=== PATIENT | female | born 1990 | race Caucasian/White ===

== ENCOUNTER 2023-03-27 08:17 | Outpatient (RCR) | payer OTHER, SELFPAY ==
[2023-03-26 13:14] LABS: HIV 1/2 Ab P24 Ag Result Negative (Negative)
[2023-03-27 11:25] LABS: Rapid Plasma Reagin Non-Reactive (NonReactive)
[2023-03-27] MEDS: RHO(D) IMMUNE GLOBULIN 300 MCG/2 ML SYRINGE IM (14:01)
== END 2023-03-27 08:30 | disposition home or self-care (01) ==
LOC: ANHLAB 08:17
PROVIDERS: Visit Provider Obstetrics & Gynecology
DX: Z11.4 Encounter for screening for human immunodeficiency virus [HIV] (principal); Z29.13 Encounter for prophylactic Rho(D) immune globulin; O36.0190 Maternal care for anti-D [Rh] antibodies, unspecified trimester, not applicable or unspecified; Z3A.00 Weeks of gestation of pregnancy not specified
CPT/HCPCS: 36415; 85461; 86592; 86703; 86850; 86900; 86901; 90384; 96372; G0432; J2790

== ENCOUNTER 2023-06-15 08:29 | Outpatient (RCR) | payer OTHER, SELFPAY ==
[2023-06-09 10:37] VITALS: BP 130/75; PULSE 62
--- NOTE | ~2023-06-15 | US_ITS ---
. EXAMINATION: US OB limited DATE: 06/15/2023 09:28 INDICATION: Postdates. TECHNIQUE: Real-time ultrasound of the pelvis was performed. COMPARISON: Ultrasound 06/09/2023 FINDINGS: There is a single fetus in vertex presentation. The placenta is anterior. heart rate is 140 be ats per minute (bpm). The amniotic fluid index is 10.0 cm, which is normal. IMPRESSION: 1. Single living fetus in vertex presentation. 2. Normal amniotic fluid index. Reviewed, dictated and finalized at location A.
--- NOTE | ~2023-06-15 | US_ITS ---
EXAMINATION: US OB limited DATE: 06/09/2023 10:23 INDICATION: Amniotic fluid index assessment, term TECHNIQUE: Real-time ultrasound of the pelvis was performed. The interpreting radiologist was not pre sent for the study. COMPARISON: None. FINDINGS: There is a single living fetus in vertex presentation. The placenta is anterior. card iac activity and movement are noted. heart rate is 139 beats per minute (bpm). The amniot ic fluid index is 11.5 cm which is normal (normal range: 7.1 cm to 21.4 cm). IMPRESSION: 1. Single living fetus in vertex presentation. 2. Normal amniotic fluid index. Reviewed, dictated and finalized at location L.
[2023-06-15 09:38] VITALS: BP 104/65; PULSE 62
== END 2023-07-13 12:40 | disposition home or self-care (01) ==
LOC: ANHOBOP 08:29
PROVIDERS: Visit Provider Obstetrics & Gynecology
DX: O48.0 Post-term pregnancy (principal); Z3A.40 40 weeks gestation of pregnancy
CPT/HCPCS: 59025; 76815

== ENCOUNTER 2023-06-17 05:05 | Inpatient (IN) | payer OTHER, SELFPAY ==
[2023-06-17] VITALS (94 sets, daily range): BP systolic 87–185; BP diastolic 48–169; PULSE 50–137; RESP 16–18; TEMP 36.5–37.3; O2SAT 81–100; BMI 31.3
--- NOTE | 2023-06-17 05:27 | LDADM ---
This patient, Suzie Llamas, was admitted to Labor/Delivery/Recovery 103 on 06/17/23 at 05:05. Plans for labor, pain management and were discussed with patient. Patient/family oriented to hospital policies and general routines including ID bracelet, bed and alarms, visiting hours, pain management, procedures, bathroom and other care routines, personal items, smoking policy, room service/diet and guest tray routines, infant security routines, and visiting hours. Patient/Family are encouraged to report perceived risks to care and to ask questions if they do not understand what they are told or what they should do. See OBIX for further documentation.
[2023-06-17 06:05] LABS: Basophils Absolute Auto 0.1 K/mm3 (0.0-0.1); Basophils Percent Auto 0.9 % (0.2-1.2); Eosinophils Absolute Auto 0.3 K/mm3 (0-0.3); Eosinophils Percent Auto 3.8 % (0-4.4); Hematocrit 40.2 % (37.0-47.0); Hemoglobin 13.5 g/dL (12.0-15.0); Immature Granulocyte Absolute 0.05 K/mm3 (0.00-0.031); Immature Granulocyte Percent A 0.6 % (0-0.5); Lymphocytes Absolute Auto 1.89 K/mm3 (0.9-3.2); Lymphocytes Percent Auto 21.2 % (18.3-44.2); Mean Corpuscular HGB Conc 33.6 g/dl (32-36); Mean Corpuscular Hemoglobin 30.7 pg (26-34); Mean Corpuscular Volume 91.4 fl (80-100); Monocytes Absolute Auto 0.7 K/mm3 (0.1-0.6); Monocytes Percent Auto 7.3 % (2.6-8.5); Neutrophils Absolute Auto 5.9 K/mm3 (1.3-6.7); Neutrophils Percent Auto 66.2 % (45.5-73.1); Platelet Count Result 165 k/mm3 (150-375); Red Cell Distribution Width 13.3 % (11.5-14.5); White Blood Count 8.9 K/mm3 (4.5-10.0)
[2023-06-17] MEDS: OXYTOCIN 30 UNITS/NS 500 ML 30 UNITS/500 ML BAG 6 UNITS IV CONT (06:56)
[2023-06-17] MEDS: LACTATED RINGERS 1,000 ML 125 ML IV CONT ×2 (06:56→11:31)
--- NOTE | 2023-06-17 11:46 | WPDANESEPPF ---
Anes - Initial Pre Proc Eval Date/Time: 06/17/23 11:46 Surgeon: Lokesh Felipe MD Pre Op Diagnosis: IOL Patient Data Age: 33 Gender: F Height: 1.68 m Weight: 88 kg Last Vital Signs Temp 36.6 C 06/17/23 08:27 Pulse 67 06/17/23 11:45 BP 115/66 06/17/23 11:45 Pulse Ox 100 06/17/23 11:43 O2 Del Method Room Air 06/17/23 05:25 Allergies Allergy/AdvReac Type Severity Reaction Status Date / Time No Known Allergies Allergy Verified 06/16/23 08:09 Home Medications Medication Instructions Recorded Confirmed Type Saccharomyces boulardii 250 mg 5,000 mmu cells PO DAILY 11/05/22 06/16/23 History capsule (Daily Probiotic (S. boulardii)) Seeking Health Essentials 1 tab-cap PO DAILY 11/05/22 06/16/23 History cholecalciferol (vitamin D3) 50 50 mcg PO DAILY 11/05/22 06/16/23 History mcg (2,000 unit) capsule choline 250 mg tablet 350 mg PO DAILY 11/05/22 06/16/23 History docosahexaenoic acid 200 mg 200 mg PO DAILY 11/05/22 06/16/23 History capsule ( DHA) ferrous gluconate 240 mg (27 mg 240 mg PO DAILY 11/05/22 06/16/23 History iron) tablet (Ferate) magnesium 200 mg tablet 150 mg PO DAILY 11/05/22 06/16/23 History Laboratory Tests 06/17/23 05:45 WBC 8.9 K/mm3 (4.5-10.0) RBC 4.40 M/mm3 (4.2-5.4) Hgb 13.5 g/dL (12.0-15.0) Hct 40.2 % (37.0-47.0) MCV 91.4 fl (80-100) MCH 30.7 pg (26-34) MCHC 33.6 g/dl (32-36) RDW 13.3 % (11.5-14.5) Plt Count 165 k/mm3 (150-375) MPV 11.0 H fl (7.4-10.4) Immature Gran % (Auto) 0.6 H % (0-0.5) Neut % (Auto) 66.2 % (45.5-73.1) Lymph % (Auto) 21.2 % (18.3-44.2) [place] % (Auto) 7.3 % (2.6-8.5) Eos % (Auto) 3.8 % (0-4.4) Baso % (Auto) 0.9 % (0.2-1.2) Lymph # (Auto) 1.89 K/mm3 (0.9-3.2) [place] # (Auto) 0.7 H K/mm3 (0.1-0.6) Eos # (Auto) 0.3 K/mm3 (0-0.3) Baso # (Auto) 0.1 K/mm3 (0.0-0.1) Abs Immat Gran (auto) 0.05 H K/mm3 (0.00-0.031) Absolute Neuts (auto) 5.9 K/mm3 (1.3-6.7) Absolute Nucleated RBC 0.0 K/mm3 (0.0-0.012) Nucleated RBC % 0.0 % (0.0-0.2) RPR Pending Blood Type O Negative Antibody Screen Positive Antibody Identification Inconclusive Antigen Identification Cancelled KAT, IgG Interpret Not Performed KAT, Poly Interpret Negative KAT, Complement Interp Not Performed Patient hx anesthesia problems: none Family hx anesthesia problems: none Results Review: All pre-operative results and documents have been reviewed as part of the pre-operative evaluation. [facility] Past Medical History Medical History No active medical problems Surgical History Surgical History S/P left knee surgery S/P plastic surgery lower body lift, breast lift, arm lift, thigh and back lift S/P right knee surgery Family History Family History Sibling Coarctation of aorta Social History Social History Smoking status: Never smoker Alcohol intake: never Substance use: never Substance use type: does not use Lack of Transportation: No Lack of Food: Never True Current Housing: I Have Housing Concerned About Future Housing: No Difficulty Paying Gas/Electric Bills: No Difficulty Paying for Meds: No Currently Unemployed: No Education: Bachelor's Degree Difficulty w/ Childcare or Family Care: No Living arrangements: with family Occupation/Education: occupation Gender identity (if verbalized by the patient): Female Sexual Orientation (if Verbalized by the Patient): Straight or Heterosexual Spiritual care concerns: No Anes - Eval Final PreProcedure Day of Procedure 06/17/23 11:46 Patient katlyn
[2023-06-17 12:44] LABS: Rapid Plasma Reagin Non-Reactive (NonReactive)
[2023-06-17] MEDS: OXYTOCIN 30 UNITS/NS 500 ML 30 UNITS/500 ML BAG 125 UNITS IV CONT (16:00)
--- NOTE | 2023-06-17 18:30 | OBPPTRN ---
Patient transferred to post room #281 via wheelchair. Support person present. Oriented to unit, room, information board, rooming in, admission packet and security measures. Patient verbalizes understanding.
--- NOTE | 2023-06-17 22:50 | PC.NURSE ---
Patient expressed having a breath moment where she explained it was difficult to take a deep breath. Vitals were taken and WNL. Patient expressed feeling back to normal and having no other symptoms. Will continue to monitor.
[2023-06-18 04:00] VITALS: BP 109/65; PULSE 54; RESP 20; TEMP 36.8; O2SAT 98
[2023-06-18 04:03] LABS: Hematocrit 38.7 % (37.0-47.0); Hemoglobin 11.6 g/dL (12.0-15.0)
[2023-06-18 08:10] VITALS: BP 115/64; PULSE 57; RESP 18; TEMP 37; O2SAT 100
[2023-06-18 11:43] VITALS: BP 106/64; PULSE 63; RESP 16; TEMP 37.3; O2SAT 99
--- NOTE | 2023-06-18 12:04 | PC.NURSE ---
0830 Introductions were made, then consulted with patient to assess needs related to . Mother led the conversation with her?plans to feed?her and the?experience so far. Mother works well with her with encouragement and education. Encouraged understanding of the benefits of skin to skin (demonstrating unwrapping and placing upright on her chest), stimulating with massage touch, changing positions to encourage wakefulness, how to watch for early feeding cues, responsive feeding, feeding on demand (aiming for 8-12 times in 24 hours, about every 2-3 hours), milk production, building/maintaining a milk supply, duration of feeding, signs of adequate intake/output and how to record on the feeding sheet. Reviewed positioning and ear, shoulder, hip alignment, supporting the breast to facilitate a deep latch, asymmetrical latch (off-center), leading with the chin with a big, open, wide gape and body close to mother. Infant latched optimally to the right breast in cross cradle position. Education given to mother of how to visualize suck/swallow ratios and listen for drinking at the breast. was able to maintain latch without discomfort to mother. Nipple care reviewed with optimal latch and good positioning. Reminding mother of comfort measures of healing with a warm and wet washcloth to rinse breast, then leave open to air-dry as needed. Reviewed good handwashing when or touching the breast/nipples to prevent infection. Resources used to facilitate learning were used with the visual handouts and mom and baby guide. Mother voiced understanding of skin to skin, stimulating with massage touch, responsive feedings, hand expressed colostrum, talking to to encourage if it has been 2 -2.5 hours since the start of the last , to call if does not latch, or if there is discomfort with . Resources provided for inpatient/outpatient with business card, feeding sheet and the mom/baby guide. Parents voiced understanding of information, demonstrated learning and will call if there is a request for assistance. Reported to primary RN.
--- NOTE | 2023-06-18 12:08 | PC.NURSE ---
0845 Taught proper methods for holding , burping, and swaddling infant per parents request. Parents very receptive and eager to care for infant.
--- NOTE | 2023-06-18 14:03 | WPDANLDPN2 ---
Anes-Prog Note L&D Date/Time: 06/18/23 14:03 Comfortable throughout: labor and delivery Neuraxial method: epidural Epidural/Spinal procedure site: clean & non-tender Neuro status: Neuro function grossly intact. Cardiovascular status: normal Respiratory status: normal Airway patency: baseline Mental status: baseline Post-Op hydration status: normal Vital Signs: Last Vital Signs Temp 37.3 C 06/18/23 11:43 Pulse 63 06/18/23 11:43 Resp 16 06/18/23 11:43 BP 106/64 06/18/23 11:43 Pulse Ox 99 06/18/23 11:43 O2 Del Method Room Air 06/17/23 18:35 Pain score (VAS): 10 I/O: Intake & Output 06/17/23 06/18/23 06/18/23 23:59 07:59 15:59 Output Total 50 Balance -50 Post-procedural complaints: none Patient feedback: Patient satisfied with anesthetic care.
[2023-06-18 21:30] VITALS: BP 131/79; PULSE 63; RESP 16; TEMP 36.8; O2SAT 100; O2SAT 99
[2023-06-19 08:05] VITALS: BP 134/84; PULSE 64; RESP 18; TEMP 36.9; O2SAT 98
--- NOTE | 2023-06-19 12:43 | PM.OBPNVD ---
OB - PN: Subj Subjective Date/time seen: 06/18/23 0820 Patient comments: pain well controlled, tolerating diet and other (Decreasing lochia.) baby status: doing well and nursing well [place] feeding status: exclusively breast feeding OB - PN: Obj Data Labs 06/18/23 03:54 OB - PN A/P Assessment and Plan (1) Vaginal delivery: Code(s): O80 - Encounter for full-term uncomplicated delivery Status: Acute Plan day: 1 Plan: routine care Comments: Patient doing well. Time Spent With Patient Time: Total time spent is greater than 50% in coordination of care (as documented) at patient's floor/unit and/or counseling patient: Exam Psych: Affect: normal affect Other: Abd: fundus firm below umbilicus, nontender Perineum: healing Ext: nontender
--- NOTE | 2023-06-19 12:44 | PM.OBPNVD ---
OB - PN: Subj Subjective Date/time seen: 06/19/23 12:44 Patient comments: pain well controlled, tolerating diet and other (Decreasing lochia.) baby status: doing well and nursing well [place] feeding status: exclusively breast feeding OB - PN: Obj Data Labs 06/18/23 03:54 OB - PN A/P Assessment and Plan (1) Vaginal delivery: Code(s): O80 - Encounter for full-term uncomplicated delivery Status: Acute Plan Plan: routine care and discharge home Comments: Patient doing well. Time Spent With Patient Time: Total time spent is greater than 50% in coordination of care (as documented) at patient's floor/unit and/or counseling patient: Exam Psych: Affect: normal affect Other: Abd: fundus firm below umbilicus, nontender Perineum: healing Ext: nontender
[2023-06-20 10:38] VITALS: BP 132/72; PULSE 80; RESP 18; TEMP 37.1; O2SAT 98
--- NOTE | 2023-07-01 12:04 | PM.IMHP ---
H&P: HPI History of Present Illness Date/Time: 06/17/23 12:00 Chief Complaint: Induction of labor. Narrative: Pt is a G1 at 41 1/7 weeks admitted for postdates induction. PNC uncomplicated. Labs reviewed. Review of Systems Review of Systems: All systems reviewed & are unremarkable except as noted in HPI and below Constitutional: Constitutional: Reports no additional constitutional complaints and Denies headache(s) Eyes: Eyes: Denies spots in vision ENT: Reports system reviewed and no additional complaints, except as documented and Denies headache(s) Cardiovascular: Cardiovascular: Denies chest pain and Denies dyspnea Respiratory: Respiratory: Denies dyspnea Gastrointestinal: Gastrointestinal: Reports no additional gastrointestinal complaints Genitourinary: Genitourinary: Reports amenorrhea Musculoskeletal: Musculoskeletal: Reports no additional musculoskeletal complaints Integumentary/Breasts: Skin/Breast: Denies breast mass and Denies rash Neurologic: Denies headache(s) Psychiatric: Psychiatric: Reports no additional psychiatric complaints PMFSH Past Medical History Medical History No active medical problems Surgical History Surgical History S/P left knee surgery S/P plastic surgery lower body lift, breast lift, arm lift, thigh and back lift S/P right knee surgery Family History Family History Sibling Coarctation of aorta Social History Social History Smoking status: Never smoker Alcohol intake: never Substance use: never Substance use type: does not use Lack of Transportation: No Lack of Food: Never True Current Housing: I Have Housing Concerned About Future Housing: No Difficulty Paying Gas/Electric Bills: No Difficulty Paying for Meds: No Currently Unemployed: No Education: Bachelor's Degree Difficulty w/ Childcare or Family Care: No Living arrangements: with family Occupation/Education: occupation Gender identity (if verbalized by the patient): Female Sexual Orientation (if Verbalized by the Patient): Straight or Heterosexual Spiritual care concerns: No Meds Home Medications and Allergies Home Medications Medication Instructions Recorded Confirmed Type Saccharomyces boulardii 250 mg 5,000 mmu cells PO DAILY 11/05/22 06/16/23 History capsule (Daily Probiotic (S. boulardii)) Seeking Health Essentials 1 tab-cap PO DAILY 11/05/22 06/16/23 History cholecalciferol (vitamin D3) 50 50 mcg PO DAILY 11/05/22 06/16/23 History mcg (2,000 unit) capsule choline 250 mg tablet 350 mg PO DAILY 11/05/22 06/16/23 History docosahexaenoic acid 200 mg 200 mg PO DAILY 11/05/22 06/16/23 History capsule ( DHA) magnesium 200 mg tablet 150 mg PO DAILY 11/05/22 06/16/23 History Allergies Allergy/AdvReac Type Severity Reaction Status Date / Time No Known Allergies Allergy Verified 06/16/23 08:09 Exam Const: General: no acute distress Eyes: General: appearance normal, both eyes and all related structures Resp: Effort & Inspection: normal respiratory effort Cardio: Rate: regular rate GI: Other: Gravid no fundal tenderness no right upper quadrant pain Skin: General skin exam: no rashes or lesions noted Neuro: Cognition (Neuro): normal cognition Extrem: General: normal to inspection Psych: Mental Status: mental status grossly normal Assessment and Plan Assessment and plan (1) Elective induction of labor planned: Status: Acute Assessment and Plan: Admit. [place].
--- NOTE | 2023-07-01 12:06 | P.PCNOB_ITS ---
OB - Delivery Note Procedure Delivery date: 06/17/23 Procedure: Spontaneous vaginal delivery Induction method: Per Pitocin Protocol Delivery augmentation: Rupture of Membranes Delivery monitor: External FHT and External Uterine Route of delivery: Laceration Description: Perineal - 2nd Degree Delivery repair: vicryl (3.0 vicryl) Quantitative Blood Loss (ml): 150 Anesthesia type: Epidural Disposition: Floor Complications: None Narrative: Patient was admitted morning of 06/17. Pitocin initiated. She started having irregular contractions. She had AROM clear fluid at 0730. She progressed to active labor. Epidural placed on request. She had a spontaneous vaginal delivery. Infant vigorous and crying and placed on abdomen. Delayed cord clamping. Cord blood and cord gases. [place] Baby Date of : 06/17/23 Time of : 15:31 Weeks of gestation at delivery: 41 gender: Male Weight (pounds): 8 Weight (ounces): 9 presentation: vertex position: Right Occiput Anterior Placenta delivery description: Spontaneous Cord Vessel Description: 3 Vessels score one minute: 8 score five minutes: 9
--- NOTE | 2023-07-09 09:13 | PM.OBDSVD ---
DS: Admitting Diagnosis Discharge Date 06/19/23 Admitting Diagnosis Medical induction of labor 2. Postdates DS: Discharge Diagnosis Discharge Diagnosis Plan Vaginal delivery OB - DS: Summary Hospital Course Hospital Course: She was admitted for medical induction of labor. She had Pitocin started. She had assisted rupture membranes. She had a spontaneous vaginal delivery. She did well . Baby did well she was ambulating well had adequate pain control tolerating regular diet prior to discharge. OB Procedures : Ultrasound OB Procedures Intrapartum: Spontaneous Vag Delivery OB Procedures: : None Peripartum Data Infant Delivery Method: Natural Vaginal Laceration Description: Perineal - 2nd Degree complications: none Status at Discharge Functional status at discharge: independent ambulation Time Spent with Patient Time attestation: Total time spent providing and/or coordinating discharge services: Exam Const: General: cooperative Orientation/consciousness: oriented to person, oriented to place and oriented to time HENMT: Face/Nose/Sinus: Normal external nose present Eyes: General: appearance normal, both eyes and all related structures Resp: Effort & Inspection: normal respiratory effort GI: Inspection: normal to inspection Skin: General skin exam: normal color Neuro: General: oriented to person, oriented to place and oriented to time Extrem: General: normal to inspection and no calf tenderness Psych: Appearance: grossly normal Mental Status: mental status grossly normal Discharge Plan Discharge Attending physician on discharge: Lokesh Feliep Consulting providers: Tarik Mckinney; Sangita Hoyos Discharging Clinician: Lokesh Felipe Anticipated Discharge Date/Time: 06/19/23 12:45 Patient Disposition: Home, Self-Care Activity: may shower and pelvic rest Diet: regular Discharge Instructions: Education: Mom and Baby Guide Given to: Mother Follow-Up: Call your delivering provider's office for an appointment to be seen in: 4 Weeks Mom and baby should come to the [facility] for the follow-up appointment. Appointment Date/Time: June 20, 2023 at 10:00 am What to expect at your follow-up visit: Blood Pressure Check Physical Assessment Call [phone] if you are unable to keep your appointment time. BREAST CARE: * Wear a snug supportive bra. * For engorgement discomfort: Breast Feeding: * Apply warm moist washcloths * Express milk as needed to relieve engorgement * Wear loose clothing s * For sore nipples: * Identify correct latch-on * Apply warm moist washcloths before and after nursing * Air dry nipples after nursing * May apply Lansinoh cream to nipples EPISIOTOMY/PERINEAL CARE: * Until bleeding stops, use your johann bottle after urinating * Change your pad frequently throughout the day * You may take sitz baths several times a day (fill your bathtub with warm water and soak for 20 minutes.) Do NOT bathe in the water * No tub baths until seen by your physician - You may shower ACTIVITY: * Rest as much as possible. * Do not exercise or lift anything heavier than your baby for about 2 weeks. * Avoid stairs or driving as much as possible. * Do not put anything into the vagina. No douching, tampons, or sexual activity until seen by physician. NOTIFY PHYSICIAN IF YOU HAVE ANY QUESTIONS OR IF ANY OF THE FOLLOWING SYMPTOMS OCCUR: * If your vaginal area becomes red, swollen, or more painful than what you have experienced in the hospital. * If your vaginal bleeding becomes foul smelling. * If your vaginal bleeding becomes more heavy than a period or if your bleeding changes from the brownish red/period color it is now to bright red. However, you may pass an occasional walnut-sized clot once or twice for the first week p
== END 2023-06-19 16:45 | disposition home or self-care (01) | DRG 807 ==
LOC: ANHLDR 05:06 → ANHOB2 18:33
PROVIDERS: Admitting Provider Obstetrics & Gynecology; Visit Provider Obstetrics & Gynecology
DX: O70.1 Second degree perineal laceration during delivery (principal); Z37.0 Single live birth; Z3A.41 41 weeks gestation of pregnancy
CPT/HCPCS: 36415; 85014; 85018; 85025; 86592; 86850; 86880; 86900; 86901; 86902; A9270; J2590; J2795; J7120

== ENCOUNTER 2024-06-13 17:40 | Emergency (ER) | payer OTHER, SELFPAY ==
[2024-06-13 18:07] VITALS: BP 129/73; PULSE 81; RESP 16; TEMP 37.4; O2SAT 100
--- NOTE | 2024-06-13 18:46 | ED.URI ---
HPI - URI/Sore Throat General Chief Complaint: Upper Respiratory Infection Stated Complaint: sore throat/ear Time Seen by Provider: 06/13/24 18:46 History of Present Illness HPI Narrative: 34-year-old female presents for complaint of sore throat bilateral ear pain over the past 3 days. Endorses symptoms are improving today. States the right ear just has mild pain, left ear pain is resolved. Endorses painful swallow. Denies cough, shortness of breath, wheezing, vomiting or fever. Has been taking ibuprofen. Related Data Allergies Allergy/AdvReac Type Severity Reaction Status Date / Time No Known Allergies Allergy Verified 01/22/24 13:05 Review of Systems Review of Systems: CONSTITUTIONAL: Denies body aches, fever, chills, or sweats. EYES: Denies visual changes, redness, or discharge. ENT: Denies rhinorrhea, congestion, reports sore throat, otalgia. CARDIOVASCULAR: Denies chest pain, palpitations, or edema. RESPIRATORY: Denies dyspnea. GASTROINTESTINAL: Denies abdominal pain, nausea, vomiting, or diarrhea. SKIN: Denies rash, itching, or wounds. MUSCULOSKELETAL: Denies back pain, joint pain, or myalgia. NEUROLOGIC: Denies headache PMFSH Past Medical History Medical History No active medical problems Vaginal delivery Surgical History Surgical History S/P left knee surgery S/P plastic surgery lower body lift, breast lift, arm lift, thigh and back lift S/P right knee surgery Family History Family History Sibling Coarctation of aorta Social History Social History Smoking status: Never smoker Alcohol intake: never Substance use: never Substance use type: does not use Lack of Transportation: No Lack of Food: Never True Current Housing: I Have Housing Concerned About Future Housing: No Difficulty Paying Gas/Electric Bills: No Difficulty Paying for Meds: No Currently Unemployed: No Education: Bachelor's Degree Difficulty w/ Childcare or Family Care: No Living arrangements: with family Occupation/Education: occupation Gender identity (if verbalized by the patient): Female Sexual Orientation (if Verbalized by the Patient): Straight or Heterosexual Spiritual care concerns: No Exam Narrative: GENERAL: well-appearing, no acute distress. EYES: conjunctivae clear ENT: Mucous membranes moist. TMs pearly marrero with normal light reflex bilaterally; no tragal tenderness. Oropharynx erythematous without lesions. Tonsils enlarged 1+ and without exudate. No drooling, no hoarseness, no trismus, uvula midline. No tripod positioning, hot potato voice, or soft palate swelling. NECK: Supple. No lymphadenopathy CHEST: Clear to auscultation, breath sounds equal. No respiratory distress, speaks in full sentences. HEART: Regular rate and rhythm. No murmur heard. SKIN: Warm, dry, no rash. NEURO: Alert and oriented x3. Course Course Emergency Course: Patient is aware of diagnosis, understands and agrees to treatment plan. Anticipatory guidance given. Patient agrees to follow-up as directed and is aware of reasons to seek care at the emergency department. Portions of this record may have been created with voice recognition software Level of Care: Express Care Visit Vital Signs Vital signs: Vital Signs Temperature 99.3 F 06/13/24 18:07 Pulse Rate 81 06/13/24 18:07 Respiratory Rate 16 06/13/24 18:07 Blood Pressure 129/73 06/13/24 18:07 Pulse Oximetry 100 06/13/24 18:07 Oxygen Delivery Room Air 06/13/24 18:07 Temperature 99.3 F 06/13/24 18:07 Pulse Rate 81 06/13/24 18:07 Respiratory Rate 16 06/13/24 18:07 Blood Pressure 129/73 06/13/24 18:07 Pulse Oximetry 100 06/13/24 18:07 Oxygen Delivery Room Air 06/13/24 18:07 M
[2024-06-13 19:05] LABS: EDSTREPNEGPOS1 Presumptive Negative
== END 2024-06-13 19:13 | disposition home or self-care (01) ==
PROVIDERS: Emergency Provider Nurse Practitioner Family; PCP Registered Nurse
DX: J06.9 Acute upper respiratory infection, unspecified (principal)
CPT/HCPCS: 87081; 87880; 99213; G0463